=== PATIENT | male | born 1955 | race Hispanic/Latino ===

== ENCOUNTER 2018-07-25 12:50 | Inpatient (IN) | payer SELFPAY ==
[~2018-07-25] VITALS: Ht 166.4 cm; Wt 79.6 kg
[2018-07-25 13:19] LABS: APPEARANCE,URINE Turbid (CLEAR); BILIRUBIN,URINE Negative (NEGATIVE); COLOR,URINE Yellow (YELLOW); GLUCOSE, URINE (UA) >=1000 mg/dL (NEGATIVE); KETONES,URINE Negative (NEGATIVE); LEUKOCYTE ESTERASE ,URINE Moderate (NEGATIVE); NITRATE,URINE Negative (NEGATIVE); OCCULT BLOOD,URINE Small (NEGATIVE); PROTEIN,URINE Trace (NEGATIVE); UROBILINOGEN,URINE 0.2 mg/dL (0.2-1.0)
[2018-07-25 13:33] LABS: BACTERIA,URINE Rare /HPF (None Seen); MUCUS,URINE Few LPF (None Seen); RBC,URINE 0-1 /HPF (0-1); SQUAMOUS EPITHELIAL CELL,UR Few /HPF (0-2); YEAST,URINE BUDDING Few /HPF (None Seen)
[2018-07-25] MEDS ORDERED: ONDANSETRON HCL 4 MG/2 ML VIAL ONE (14:22)
[2018-07-25] MEDS ORDERED: MORPHINE SULFATE 2 MG/ML 1ML SYG ONE (14:23)
[2018-07-25 14:31] LABS: BASOPHILS % (AUTO) 0.3 % (0.0-5.0); EOSINOPHILS % (AUTO) 0.9 % (0.0-8.0); HEMATOCRIT 38.2 % (42-54); LYMPHOCYTES % (AUTO) 13.4 % (21.0-51.0); MEAN CORPUSCULAR HEMOGLOBIN 28.8 pg (27.0-33.0); MEAN CORPUSCULAR HGB CONC 33.8 g/dL (32.0-36.0); MEAN CORPUSCULAR VOLUME 85.2 fL (79-99); MONOCYTES % (AUTO) 6.4 % (3.0-13.0); PLATELET COUNT (AUTO) 285 K/uL (130-400); RED BLOOD CELL COUNT(AUTO) 4.49 MIL/uL (4.50-6.20); RED CELL DISTRIBUTION WIDTH 13.2 % (11.0-15.5); WHITE BLOOD COUNT (AUTO) 11.8 K/uL (4.8-10.8)
[2018-07-25] MEDS ORDERED: SODIUM CHLORIDE 0.9% 1000ML 1,000 ML IV ONE (14:31)
[2018-07-25 14:44] LABS: ALBUMIN 3.6 g/dL (3.5-5.0); BILIRUBIN,TOTAL 0.7 mg/dL (0.2-1.0); TOTAL PROTEIN, SERUM 8.7 g/dL (6.0-8.3)
[2018-07-25] MEDS ORDERED: LEVOFLOXACIN 750 MG/D5W 150 ML 150 ML ONE (15:34)
[2018-07-25] MEDS: LEVOFLOXACIN 500 MG/D5W 100 ML 100 ML IV SCH (16:30)
[2018-07-25 17:40] VITALS: BP 137/86
[2018-07-25] MEDS: HYDROCODONE/ACETAMINOPHEN 5/325 MG TAB PO PRN (18:38)
[2018-07-25] MEDS: SODIUM CHLORIDE 0.9% 1000ML 1,000 ML IV SCH (18:39)
[2018-07-25] MEDS ORDERED: GLIP5TAB11 PO (19:24)
[2018-07-25] MEDS ORDERED: MORPHINE SULFATE 2 MG/ML 1ML SYG IV PRN (20:00)
[2018-07-25 20:10] VITALS: BP 134/73
[2018-07-25] MEDS: METRONIDAZOLE 500 MG TABLET PO SCH (20:25)
[2018-07-25] MEDS: INSULIN HUMULIN R 100 UNIT/ML 3ML SQ SCH ×2 (20:58→21:23)
[2018-07-25 23:45] VITALS: BP 121/72
[2018-07-26] MEDS: SODIUM CHLORIDE 0.9% 1000ML 1,000 ML IV SCH ×3 (02:04→12:22)
[2018-07-26 03:36] VITALS: BP 113/75
[2018-07-26] MEDS: INSULIN HUMULIN R 100 UNIT/ML 3ML SQ SCH ×4 (05:40→20:46)
[2018-07-26 05:48] LABS: BASOPHILS % (AUTO) 0.3 % (0.0-5.0); EOSINOPHILS % (AUTO) 1.3 % (0.0-8.0); HEMATOCRIT 32.1 % (42-54); LYMPHOCYTES % (AUTO) 22.3 % (21.0-51.0); MEAN CORPUSCULAR HGB CONC 32.7 g/dL (32.0-36.0); MEAN CORPUSCULAR VOLUME 85.6 fL (79-99); MONOCYTES % (AUTO) 8.8 % (3.0-13.0); NEUTROPHILS % (AUTO) 67.3 % (40.0-77.0); NUCLEATED RED BLOOD CELLS 0.1 % (0.0-0.19); PLATELET COUNT (AUTO) 216 K/uL (130-400); RED BLOOD CELL COUNT(AUTO) 3.75 MIL/uL (4.50-6.20); RED CELL DISTRIBUTION WIDTH 13.4 % (11.0-15.5); WHITE BLOOD COUNT (AUTO) 8.3 K/uL (4.8-10.8)
[2018-07-26 06:01] LABS: ALBUMIN 2.7 g/dL (3.5-5.0); BILIRUBIN,TOTAL 0.4 mg/dL (0.2-1.0); POTASSIUM 3.4 mmol/L (3.5-5.1); TOTAL PROTEIN, SERUM 6.9 g/dL (6.0-8.3)
[2018-07-26 08:00] VITALS: BP 107/74
[2018-07-26] MEDS: PANTOPRAZOLE SODIUM 40 MG TABLET.DR PO SCH (08:41)
[2018-07-26] MEDS: METRONIDAZOLE 500 MG TABLET PO SCH (08:41)
[2018-07-26] MEDS: ENOXAPARIN SODIUM 30 MG/0.3 ML SQ SCH (08:42)
[2018-07-26] MEDS: HYDROCODONE/ACETAMINOPHEN 5/325 MG TAB PO PRN (08:46)
[2018-07-26 11:00] VITALS: BP 112/75
[2018-07-26] MEDS: LEVOFLOXACIN 500 MG/D5W 100 ML 100 ML IV SCH (15:15)
[2018-07-26 16:00] VITALS: BP 115/67
[2018-07-26 20:00] VITALS: BP 122/64
[2018-07-27] VITALS: BP 124/58
[2018-07-27 04:06] VITALS: BP 102/60
[2018-07-27] MEDS: INSULIN HUMULIN R 100 UNIT/ML 3ML SQ SCH ×4 (06:11→19:45)
[2018-07-27 07:30] VITALS: BP 120/75
[2018-07-27] MEDS: PANTOPRAZOLE SODIUM 40 MG TABLET.DR PO SCH (08:27)
[2018-07-27] MEDS: ENOXAPARIN SODIUM 30 MG/0.3 ML SQ SCH (08:28)
[2018-07-27] MEDS: HYDROCODONE/ACETAMINOPHEN 5/325 MG TAB PO PRN (10:26)
[2018-07-27 11:00] VITALS: BP 130/65
[2018-07-27 15:30] VITALS: BP 112/70
[2018-07-27] MEDS: LEVOFLOXACIN 500 MG/D5W 100 ML 100 ML IV SCH (15:50)
[2018-07-27 20:00] VITALS: BP 120/70
[2018-07-28] VITALS: BP 132/69
[2018-07-28 04:00] VITALS: BP 121/73
[2018-07-28] MEDS: INSULIN HUMULIN R 100 UNIT/ML 3ML SQ SCH (06:05)
[2018-07-28 08:00] VITALS: BP 110/56
[2018-07-28] MEDS ORDERED: LEVO500T2 PO (08:38)
[2018-07-28] MEDS: PANTOPRAZOLE SODIUM 40 MG TABLET.DR PO SCH (09:13)
[2018-07-28] MEDS: ENOXAPARIN SODIUM 30 MG/0.3 ML SQ SCH (09:15)
== END 2018-07-28 12:20 | disposition home or self-care (01) | DRG 862 ==
LOC: EDH 12:50 → EDHIP 12:51 → 3CH 17:07
PROVIDERS: ADMIT Hospitalist; ATTEND Hospitalist
PROC: 3E0234Z Introduction of Serum, Toxoid and Vaccine into Muscle, Percutaneous Approach (ICD-10-PCS; principal; 2018-07-25)
DX: T81.4XXA Infection following a procedure, initial encounter (principal); A41.9 Sepsis, unspecified organism; N39.0 Urinary tract infection, site not specified; E11.65 Type 2 diabetes mellitus with hyperglycemia; E11.36 Type 2 diabetes mellitus with diabetic cataract; E66.9 Obesity, unspecified; E87.6 Hypokalemia; N20.0 Calculus of kidney; N40.0 Benign prostatic hyperplasia without lower urinary tract symptoms; N43.3 Hydrocele, unspecified; N47.1 Phimosis; N50.3 Cyst of epididymis; Y83.8 Other surgical procedures as the cause of abnormal reaction of the patient, or of later complication, without mention of misadventure at the time of the procedure; Y92.89 Other specified places as the place of occurrence of the external cause; Z79.84 Long term (current) use of oral hypoglycemic drugs; Z68.28 Body mass index [BMI] 28.0-28.9, adult; Z79.899 Other long term (current) drug therapy; Z23 Encounter for immunization
CPT/HCPCS: 36415; 74176; 76770; 76870; 80053; 81001; 82150; 82948; 83605; 83690; 85025; 87040; 87088; G0008; J1650; J1815; J1956; J2405; J7030; Q2038

== ENCOUNTER 2018-11-21 13:37 | Emergency (ER) | payer OTHER ==
[~2018-11-21 13:37] MED LIST: GLIP5TAB11 PO; LEVO500T2 PO
[2018-11-21] MEDS ORDERED: HYDROCODONE/ACETAMINOPHEN 10/325 MG TAB ONE (15:18)
== END 2018-11-21 15:25 | disposition home or self-care (01) ==
LOC: EDH 13:37
DX: S20.212A Contusion of left front wall of thorax, initial encounter (principal); S20.222A Contusion of left back wall of thorax, initial encounter; E11.9 Type 2 diabetes mellitus without complications; W01.0XXA Fall on same level from slipping, tripping and stumbling without subsequent striking against object, initial encounter; Y93.01 Activity, walking, marching and hiking; Y92.89 Other specified places as the place of occurrence of the external cause; Y99.8 Other external cause status
CPT/HCPCS: 71046; 71100

== ENCOUNTER → 2019-08-31 | Outpatient (CLI) | payer OTHER ==
[~2019-08-31] MED LIST changes: +IOHEXOL 350 MG/ML 100ML INFUS..BTL IV ONE
== END | disposition home or self-care (01) ==
LOC: RAH 07:33
PROVIDERS: ATTEND Internal Medicine Gastroenterology
DX: C18.9 Malignant neoplasm of colon, unspecified (principal); K57.30 Diverticulosis of large intestine without perforation or abscess without bleeding; N40.0 Benign prostatic hyperplasia without lower urinary tract symptoms; K76.89 Other specified diseases of liver
CPT/HCPCS: 71270; 74178; Q9967

== ENCOUNTER 2020-11-01 12:07 | Emergency (ER) | payer OTHER ==
[~2020-11-01 12:07] MED LIST changes: -IOHEXOL 350 MG/ML 100ML INFUS..BTL IV ONE
[2020-11-01] MEDS ORDERED: COLCHICINE 0.6 MG TABLET ONE (14:28)
[2020-11-01 15:26] LABS: BASOPHILS % (AUTO) 0.4 % (0.0-5.0); EOSINOPHILS % (AUTO) 0.8 % (0.0-8.0); LYMPHOCYTES % (AUTO) 6.5 % (21.0-51.0); MEAN CORPUSCULAR HEMOGLOBIN 29.9 pg (27.0-33.0); MEAN CORPUSCULAR HGB CONC 32.7 g/dL (32.0-36.0); MEAN CORPUSCULAR VOLUME 91.6 fL (79-99); MONOCYTES % (AUTO) 7.5 % (3.0-13.0); PLATELET COUNT (AUTO) 532 K/uL (130-400); RED BLOOD CELL COUNT(AUTO) 2.14 MIL/uL (4.50-6.20); WHITE BLOOD COUNT (AUTO) 8.9 K/uL (4.8-10.8)
[2020-11-01 15:36] LABS: HEMATOCRIT 19.6 % (42-54)
[2020-11-01 15:41] LABS: APPEARANCE,URINE Clear (CLEAR); BILIRUBIN,URINE Negative (NEGATIVE); COLOR,URINE Yellow (YELLOW); GLUCOSE, URINE (UA) Negative (NEGATIVE); KETONES,URINE Negative (NEGATIVE); LEUKOCYTE ESTERASE ,URINE Trace (NEGATIVE); NITRATE,URINE Negative (NEGATIVE); OCCULT BLOOD,URINE Negative (NEGATIVE); PH,URINE 5.5 (5.0-8.0); PROTEIN,URINE POS 2+ mg/dL (NEGATIVE)
[2020-11-01 15:43] LABS: CREATININE 1.8 mg/dL (0.5-1.5); POTASSIUM 4.1 mmol/L (3.5-5.1)
[2020-11-01 15:46] LABS: INR 1.17 (0.85-1.15); PROTHROMBIN TIME 12.3 SEC (9.6-11.6)
[2020-11-01 15:47] LABS: ALBUMIN 2.2 g/dL (3.5-5.0); BILIRUBIN,TOTAL 0.3 mg/dL (0.2-1.0); PARTIAL THROMBOPLASTIN TIME 46.4 SEC (26.3-35.5); TOTAL PROTEIN, SERUM 8.1 g/dL (6.0-8.3)
[2020-11-01 15:50] LABS: B-TYPE NATRIURETIC PEPTIDE 173 pg/mL (0-100)
[2020-11-01 16:39] LABS: BACTERIA,URINE Rare /HPF (None Seen); RBC,URINE None Seen /HPF (0-1); SQUAMOUS EPITHELIAL CELL,UR None Seen /HPF (0-2)
== END 2020-11-01 23:52 | disposition home or self-care (01) ==
LOC: EDH 12:07
DX: M10.9 Gout, unspecified (principal); D63.8 Anemia in other chronic diseases classified elsewhere; C79.51 Secondary malignant neoplasm of bone; E11.9 Type 2 diabetes mellitus without complications; C61 Malignant neoplasm of prostate
CPT/HCPCS: 36415; 36430; 71045; 80053; 81001; 83605; 83880; 84484; 84550; 85025; 85610; 85730; 86850; 86900; 86901; 86922; 93005; 99285; P9016

== ENCOUNTER 2020-12-13 23:55 | Inpatient (IN) | payer OTHER ==
[~2020-12-13] VITALS: Ht 165.1 cm; Wt 69.9 kg
[2020-12-14] MEDS ORDERED: ONDANSETRON 4MG INJ ONE (00:19)
[2020-12-14] MEDS ORDERED: ZOSYN 3.375GM+NS 50ML 50 ML IV ONE (00:19)
[2020-12-14] MEDS ORDERED: 0.9%NACL 1000ML 1,000 ML IV ONE ×3 (00:19→00:21)
[2020-12-14] MEDS ORDERED: ACETAMINOPHEN 325 MG TAB ONE (00:20)
[2020-12-14 00:31] LABS: CREATININE 2.1 mg/dL (0.5-1.5); POTASSIUM 4.2 mmol/L (3.5-5.1)
[2020-12-14 00:35] LABS: BASOPHILS % (AUTO) 0.3 % (0.0-5.0); EOSINOPHILS % (AUTO) 0.6 % (0.0-8.0); LYMPHOCYTES % (AUTO) 4.6 % (21.0-51.0); MEAN CORPUSCULAR HEMOGLOBIN 27.4 pg (27.0-33.0); MEAN CORPUSCULAR HGB CONC 31.1 g/dL (32.0-36.0); MEAN CORPUSCULAR VOLUME 88.1 fL (79-99); MONOCYTES % (AUTO) 3.2 % (3.0-13.0); NEUTROPHILS % (AUTO) 90.6 % (40.0-77.0); PLATELET COUNT (AUTO) 424 K/uL (130-400); RED BLOOD CELL COUNT(AUTO) 2.19 MIL/uL (4.50-6.20); RED CELL DISTRIBUTION WIDTH 15.2 % (11.0-15.5); WHITE BLOOD COUNT (AUTO) 10.8 K/uL (4.8-10.8)
[2020-12-14 00:40] LABS: INR 1.24 (0.85-1.15); PROTHROMBIN TIME 13.3 SEC (9.6-11.6)
[2020-12-14 00:42] LABS: ALBUMIN 2.2 g/dL (3.5-5.0); BILIRUBIN,TOTAL 0.6 mg/dL (0.2-1.0); PARTIAL THROMBOPLASTIN TIME 23.9 SEC (26.3-35.5); TOTAL PROTEIN, SERUM 8.6 g/dL (6.0-8.3); TROPONIN I 0.09 ng/mL (0.00-0.06)
[2020-12-14 00:49] LABS: HEMATOCRIT 19.3 % (42-54)
[2020-12-14] MEDS ORDERED: 0.9%NACL 100ML 100 ML IV ONE (02:42)
[2020-12-14] MEDS ORDERED: ACETAMINOPHEN 325 MG TAB PO PRN (03:30)
[2020-12-14] MEDS ORDERED: ONDANSETRON 4MG INJ IVP PRN (03:30)
[2020-12-14 04:02] VITALS: BP 115/55
[2020-12-14] MEDS: CEFTRIAXONE 1G VIAL IVP SCH (04:24)
[2020-12-14] MEDS: 0.9%NACL 1000ML 1,000 ML IV SCH ×2 (04:28→16:50)
[2020-12-14 08:00] VITALS: BP 132/62
[2020-12-14 10:02] LABS: HEMATOCRIT 23.2 % (42-54); MEAN CORPUSCULAR HEMOGLOBIN 28.1 pg (27.0-33.0); MEAN CORPUSCULAR HGB CONC 31.5 g/dL (32.0-36.0); MEAN CORPUSCULAR VOLUME 89.2 fL (79-99); RED BLOOD CELL COUNT(AUTO) 2.6 MIL/uL (4.50-6.20); RED CELL DISTRIBUTION WIDTH 14.8 % (11.0-15.5); WHITE BLOOD COUNT (AUTO) 7.5 K/uL (4.8-10.8)
[2020-12-14 10:15] LABS: CREATININE 1.9 mg/dL (0.5-1.5); POTASSIUM 4.7 mmol/L (3.5-5.1)
[2020-12-14 12:00] VITALS: BP 89/40
[2020-12-14 16:00] VITALS: BP 112/57
[2020-12-14] MEDS: ZOSYN 3.375GM+NS 50ML 50 ML IV SCH ×2 (16:27→21:41)
[2020-12-14 20:08] VITALS: BP 122/56
[2020-12-14 22:41] LABS: APPEARANCE,URINE Clear (CLEAR); BILIRUBIN,URINE Negative (NEGATIVE); COLOR,URINE Yellow (YELLOW); GLUCOSE, URINE (UA) Negative (NEGATIVE); KETONES,URINE Negative (NEGATIVE); LEUKOCYTE ESTERASE ,URINE Negative (NEGATIVE); NITRATE,URINE Negative (NEGATIVE); OCCULT BLOOD,URINE Negative (NEGATIVE); PROTEIN,URINE POS 1+ mg/dL (NEGATIVE)
[2020-12-15 00:08] VITALS: BP 132/61
[2020-12-15] MEDS ORDERED: HYDROCODONE/ACETAMINOPHEN 10/325 MG TAB PO PRN (02:45)
[2020-12-15] MEDS ORDERED: HYDROCODONE/ACETAMINOPHEN 10/325 MG TAB ONE (02:51)
[2020-12-15] MEDS: CEFTRIAXONE 1G VIAL IVP SCH (02:58)
[2020-12-15 04:08] VITALS: BP 155/66
[2020-12-15] MEDS: ZOSYN 3.375GM+NS 50ML 50 ML IV SCH ×3 (05:32→20:54)
[2020-12-15] MEDS: 0.9%NACL 1000ML 1,000 ML IV SCH ×2 (05:32→17:56)
[2020-12-15] MEDS ORDERED: DIPHENOXYLATE HCL/ATROPINE 2.5/0.025 MG TAB PO SCH (07:00)
[2020-12-15 07:12] LABS: HEMATOCRIT 24.9 % (42-54); MEAN CORPUSCULAR HEMOGLOBIN 28.4 pg (27.0-33.0); MEAN CORPUSCULAR HGB CONC 32.1 g/dL (32.0-36.0); MEAN CORPUSCULAR VOLUME 88.3 fL (79-99); PLATELET COUNT (AUTO) 333 K/uL (130-400); RED BLOOD CELL COUNT(AUTO) 2.82 MIL/uL (4.50-6.20); WHITE BLOOD COUNT (AUTO) 5.1 K/uL (4.8-10.8)
[2020-12-15 08:18] VITALS: BP 137/59
[2020-12-15 08:27] LABS: BAND NEUTROPHILS % (MANUAL) 1 % (0-2); BASOPHILS % (MANUAL) 1 % (0-2); LYMPHOCYTES % (MANUAL) 4 % (22-44); MAN.DIFF COMMENT-IMPRESSION MANUAL DIFFERENTIAL; MONOCYTES % (MANUAL) 2 % (2-9); SEGMENTED NEUTROPHILS % 92 % (40-70)
[2020-12-15 08:28] LABS: PLATELET MORPHOLOGY COMMENT ADEQUATE
[2020-12-15 12:21] VITALS: BP 153/67
[2020-12-15] MEDS ORDERED: VANCOMYCIN PROTOCOL PER PHARMACY IV SCH (17:15)
[2020-12-15] MEDS ORDERED: DIPHENOXYLATE HCL/ATROPINE 2.5/0.025 MG TAB PO PRN (17:15)
[2020-12-15 17:23] VITALS: BP 135/58
[2020-12-15] MEDS ORDERED: COMPOUND IV REFRIGERATED 1 EACH IVSOLN MISC PRN (17:30)
[2020-12-15] MEDS ORDERED: VANCOMYCIN 1G 1.5 GM in 0.9% NACL 250ML 250 ML IV ONE (18:00)
[2020-12-15 20:04] VITALS: BP 146/62
[2020-12-16 00:04] VITALS: BP 129/54
[2020-12-16 04:04] VITALS: BP 139/64
[2020-12-16] MEDS: CEFTRIAXONE 1G VIAL IVP SCH (04:27)
[2020-12-16] MEDS: ZOSYN 3.375GM+NS 50ML 50 ML IV SCH ×3 (04:30→20:34)
[2020-12-16] MEDS: VANCOMYCIN 500MG+NS 100ML 100 ML IV SCH ×2 (08:39→17:56)
[2020-12-16 09:36] VITALS: BP 106/63
[2020-12-16 13:11] VITALS: BP 116/57
[2020-12-16 16:46] VITALS: BP 147/73
[2020-12-16] MEDS: 0.9%NACL 1000ML 1,000 ML IV SCH ×2 (17:56→22:10)
[2020-12-16 20:04] VITALS: BP 133/52
[2020-12-17 00:04] VITALS: BP 129/59
[2020-12-17 04:04] VITALS: BP 127/58
[2020-12-17] MEDS: CEFTRIAXONE 1G VIAL IVP SCH (04:14)
[2020-12-17] MEDS: ZOSYN 3.375GM+NS 50ML 50 ML IV SCH ×2 (04:14→13:35)
[2020-12-17] MEDS: VANCOMYCIN 500MG+NS 100ML 100 ML IV SCH (06:37)
[2020-12-17] MEDS ORDERED: COMPOUND IV REFRIGERATED 1 EACH IVSOLN MISC PRN (07:15)
[2020-12-17 08:13] VITALS: BP 132/61
[2020-12-17 11:42] VITALS: BP 130/61
[2020-12-17] MEDS: 0.9%NACL 1000ML 1,000 ML IV SCH (13:36)
[2020-12-17 16:30] VITALS: BP 155/72
[2020-12-18] MEDS ORDERED: VANCOMYCIN 750MG + NS 250 ML IV SCH ×2 (09:00)
== END 2020-12-17 18:00 | disposition home health service (06) | DRG 862 ==
LOC: EDH 23:55 → EDHIP 12-14 02:50 → 3AH 12-14 03:17
PROVIDERS: ADMIT Internal Medicine Hematology & Oncology; ATTEND Internal Medicine Hematology & Oncology
PROC: 30233N1 Transfusion of Nonautologous Red Blood Cells into Peripheral Vein, Percutaneous Approach (ICD-10-PCS; principal; 2020-12-14)
DX: T81.41XA Infection following a procedure, superficial incisional surgical site, initial encounter (principal); A41.9 Sepsis, unspecified organism; N17.9 Acute kidney failure, unspecified; C20 Malignant neoplasm of rectum; C79.51 Secondary malignant neoplasm of bone; L02.91 Cutaneous abscess, unspecified; D64.9 Anemia, unspecified; N18.9 Chronic kidney disease, unspecified; E11.22 Type 2 diabetes mellitus with diabetic chronic kidney disease; C61 Malignant neoplasm of prostate; Z92.21 Personal history of antineoplastic chemotherapy; Z92.3 Personal history of irradiation; D50.0 Iron deficiency anemia secondary to blood loss (chronic); Z85.038 Personal history of other malignant neoplasm of large intestine; Z85.46 Personal history of malignant neoplasm of prostate; Z20.822 Contact with and (suspected) exposure to COVID-19
CPT/HCPCS: 36415; 71045; 74176; 76770; 80048; 80053; 80202; 81003; 82270; 82550; 82948; 83605; 83874; 83880; 84145; 84484; 85025; 85027; 85610; 85730; 86850; 86900; 86901; 86923; 87040; 87070; 87076; 87088; 87426; 93005; 97039; 99291; G0378; J0696; J2405; J2543; J3370; J7030; J7050; P9016; U0003

== ENCOUNTER → 2020-12-24 | Outpatient (CLI) | payer OTHER ==
[~2020-12-24] MED LIST changes: +LIDOCAINE HCL 2% JELLY 5 ML TP ONE
== END | disposition home or self-care (01) ==
LOC: WHH 09:00
PROVIDERS: ATTEND Family Medicine
DX: T81.32XA Disruption of internal operation (surgical) wound, not elsewhere classified, initial encounter (principal); E11.22 Type 2 diabetes mellitus with diabetic chronic kidney disease; N18.9 Chronic kidney disease, unspecified; E11.628 Type 2 diabetes mellitus with other skin complications; C61 Malignant neoplasm of prostate; C20 Malignant neoplasm of rectum; M10.9 Gout, unspecified; D50.9 Iron deficiency anemia, unspecified; Z92.21 Personal history of antineoplastic chemotherapy; Z85.038 Personal history of other malignant neoplasm of large intestine; Z92.3 Personal history of irradiation; Y83.8 Other surgical procedures as the cause of abnormal reaction of the patient, or of later complication, without mention of misadventure at the time of the procedure; Y92.238 Other place in hospital as the place of occurrence of the external cause
CPT/HCPCS: G0463

== ENCOUNTER → 2020-12-31 | Outpatient (CLI) | payer OTHER | END | disposition home or self-care (01) | LOC: WHH 09:00 | PROVIDERS: ATTEND Family Medicine | DX: T81.32XD Disruption of internal operation (surgical) wound, not elsewhere classified, subsequent encounter (principal); E11.22 Type 2 diabetes mellitus with diabetic chronic kidney disease; N18.9 Chronic kidney disease, unspecified; E11.628 Type 2 diabetes mellitus with other skin complications; C61 Malignant neoplasm of prostate; C20 Malignant neoplasm of rectum; M10.9 Gout, unspecified; D50.9 Iron deficiency anemia, unspecified; Z92.21 Personal history of antineoplastic chemotherapy; Z85.038 Personal history of other malignant neoplasm of large intestine; Z92.3 Personal history of irradiation; Y83.8 Other surgical procedures as the cause of abnormal reaction of the patient, or of later complication, without mention of misadventure at the time of the procedure | CPT/HCPCS: 11042; A4450 ==

== ENCOUNTER → 2021-01-14 | Outpatient (CLI) | payer OTHER ==
[~2021-01-14] MED LIST changes: -LIDOCAINE HCL 2% JELLY 5 ML TP ONE
== END | disposition home or self-care (01) ==
LOC: WHH 09:00
PROVIDERS: ATTEND Family Medicine
DX: T81.32XD Disruption of internal operation (surgical) wound, not elsewhere classified, subsequent encounter (principal); E11.22 Type 2 diabetes mellitus with diabetic chronic kidney disease; N18.9 Chronic kidney disease, unspecified; E11.628 Type 2 diabetes mellitus with other skin complications; C61 Malignant neoplasm of prostate; C20 Malignant neoplasm of rectum; M10.9 Gout, unspecified; D50.9 Iron deficiency anemia, unspecified; Z92.21 Personal history of antineoplastic chemotherapy; Z85.038 Personal history of other malignant neoplasm of large intestine; Z92.3 Personal history of irradiation; Y83.8 Other surgical procedures as the cause of abnormal reaction of the patient, or of later complication, without mention of misadventure at the time of the procedure
CPT/HCPCS: G0463

== ENCOUNTER → 2021-01-28 | Outpatient (CLI) | payer OTHER | END | disposition home or self-care (01) | LOC: WHH 09:00 | PROVIDERS: ATTEND Family Medicine | DX: T81.89XD Other complications of procedures, not elsewhere classified, subsequent encounter (principal); E11.22 Type 2 diabetes mellitus with diabetic chronic kidney disease; N18.9 Chronic kidney disease, unspecified; E11.628 Type 2 diabetes mellitus with other skin complications; C61 Malignant neoplasm of prostate; C20 Malignant neoplasm of rectum; M10.9 Gout, unspecified; D50.9 Iron deficiency anemia, unspecified; Z92.21 Personal history of antineoplastic chemotherapy; Z85.038 Personal history of other malignant neoplasm of large intestine; Z92.3 Personal history of irradiation; Y83.8 Other surgical procedures as the cause of abnormal reaction of the patient, or of later complication, without mention of misadventure at the time of the procedure | CPT/HCPCS: G0463 ==

== ENCOUNTER → 2022-05-13 | Outpatient (CLI) | payer OTHER | END | disposition home or self-care (01) | LOC: RAH 10:19 | PROVIDERS: ATTEND Internal Medicine Hematology & Oncology | DX: C79.51 Secondary malignant neoplasm of bone (principal); C61 Malignant neoplasm of prostate; E86.0 Dehydration; D58.0 Hereditary spherocytosis; D64.9 Anemia, unspecified; M25.551 Pain in right hip; L02.91 Cutaneous abscess, unspecified; T78.40XA Allergy, unspecified, initial encounter | CPT/HCPCS: 78306; A9503 ==

== ENCOUNTER 2022-06-04 00:51 | Emergency (ER) | payer OTHER ==
[~2022-06-04] VITALS: Ht 165.1 cm; Wt 70.8 kg
[2022-06-04] MEDS ORDERED: KETOROLAC 15MG/ML VIAL (15MG/ML) IV ONE (03:00)
[2022-06-04] MEDS ORDERED: MORPHINE 4 MG SYG IVP ONE (03:00)
[2022-06-04] MEDS ORDERED: ONDANSETRON 4MG INJ IVP ONE (03:00)
[2022-06-04 03:17] LABS: BASOPHILS % (AUTO) 0.2 % (0.0-5.0); EOSINOPHILS % (AUTO) 0.6 % (0.0-8.0); HEMATOCRIT 27.5 % (42-54); LYMPHOCYTES % (AUTO) 10.9 % (21.0-51.0); MEAN CORPUSCULAR HEMOGLOBIN 27.7 pg (27.0-33.0); MEAN CORPUSCULAR HGB CONC 32.4 g/dL (32.0-36.0); MEAN CORPUSCULAR VOLUME 85.7 fL (79-99); MONOCYTES % (AUTO) 7.3 % (3.0-13.0); NEUTROPHILS % (AUTO) 75.5 % (40.0-77.0); PLATELET COUNT (AUTO) 225 K/uL (130-400); RED BLOOD CELL COUNT(AUTO) 3.21 MIL/uL (4.50-6.20); RED CELL DISTRIBUTION WIDTH 15.2 % (11.0-15.5); WHITE BLOOD COUNT (AUTO) 11.9 K/uL (4.8-10.8)
[2022-06-04 03:25] LABS: CREATININE 2.1 mg/dL (0.5-1.5); POTASSIUM 4.9 mmol/L (3.5-5.1)
[2022-06-04 03:30] LABS: ALBUMIN 2.8 g/dL (3.5-5.0); TOTAL PROTEIN, SERUM 7.6 g/dL (6.0-8.3)
[2022-06-04 06:30] VITALS: BP 148/62
[2022-06-04] MEDS ORDERED: FENTANYL 25 MCG/HR PATCH TD SCH (06:30)
== END 2022-06-04 07:02 | disposition home or self-care (01) ==
LOC: EDH 00:51
DX: C79.89 Secondary malignant neoplasm of other specified sites (principal); M54.2 Cervicalgia; Z79.899 Other long term (current) drug therapy; Z85.46 Personal history of malignant neoplasm of prostate
CPT/HCPCS: 99284; 70450; 96374; 96375; 80053; 85025; 36415; 72125; J2405; J2270; J1885

== ENCOUNTER 2025-06-02 08:11 | Outpatient (CLI) | payer OTHER ==
--- NOTE | 2025-06-03 07:55 | HMCIMG ---
EXAMINATION: ULTRASOUND OF THE ABDOMEN WITH COLOR DOPPLER. CLINICAL HISTORY: Unspecified abdomen pain. COMPARISON: CT abdomen and pelvis without contrast dated 07/13/2022. TECHNIQUE: Real-time grayscale ultrasound images of the abdomen. In addition, color Doppler is medically necessary to perform in order to evaluate vascularity and blood flow. FINDINGS: Liver: Normal in caliber, the right hepatic lobe measures 15.2 cm in the craniocaudal dimension. There is increased echogenicity of the hepatic parenchyma. There is no intrahepatic biliary ductal dilatation. There is normal spectral Doppler of the main portal vein. There are cysts that measure 1.0 x 1.2 x 1.2 cm in the left lobe and 2.6 x 2.7 x 2.4 cm in the right lobe. Gallbladder: Post cholecystectomy status. Common bile duct is normal in caliber, measuring 0.43 cm. Spleen is normal in caliber and measures 10.0 x 2.9 x 4.2 cm in craniocaudal, AP and transverse dimensions respectively. No focal lesions. Pancreas: Normal in caliber and echotexture. No calcification or dilated pancreatic duct. The kidneys are normal in caliber, the right kidney measures 8.9 x 4.4 x 3.4 cm and the left kidney measures 9.0 x 4.3 x 4;1 cm in craniocaudal, AP, and transverse dimensions respectively. There is normal renal cortical thickness, and cortical echogenicity. There is no renal calculus or hydronephrosis. There is a simple parapelvic cyst that measures 1.2 x 0.9 x 1.1 cm in the left renal upper pole. There is increased bilateral perinephric fat. The mid and distal aspects of abdominal aorta are normal in caliber with mild atherosclerosis. The proximal aorta is obscured by overlying bowel gas. Visualized aspects of the inferior vena cava are unremarkable. IMPRESSION: Hepatic steatosis. Simple hepatic cysts. Post cholecystectomy status. Left renal simple parapelvic cyst. Increased bilateral perinephric fat. Recommend CT abdomen and pelvis. /[place]
== END 2025-06-02 12:00 | disposition home or self-care (01) ==
LOC: RAH 08:11 → DAH 08:11 → RAH 12:00
PROVIDERS: ATTEND Family Medicine
DX: K76.0 Fatty (change of) liver, not elsewhere classified (principal); N28.1 Cyst of kidney, acquired; K76.89 Other specified diseases of liver; R10.9 Unspecified abdominal pain; I70.0 Atherosclerosis of aorta; Z90.49 Acquired absence of other specified parts of digestive tract
CPT/HCPCS: 76700